=== PATIENT | male | born 1975 | race African-American/Black ===

== ENCOUNTER 2022-05-20 14:48 | Emergency (ER) | payer OTHER ==
[2022-05-20] MEDS ORDERED: CLONIDINE HCL 0.2 MG TABLET PO STA (14:52)
[2022-05-20 15:20] LABS: BASOPHILS % (AUTO) 1.1 % (0.0-5.0); EOSINOPHILS % (AUTO) 3.2 % (0.0-8.0); HEMATOCRIT 41.2 % (42-54); LYMPHOCYTES % (AUTO) 49.1 % (21.0-51.0); MEAN CORPUSCULAR HGB CONC 32.8 g/dL (32.0-36.0); MEAN CORPUSCULAR VOLUME 91.6 fL (79-99); MONOCYTES % (AUTO) 7.3 % (3.0-13.0); PLATELET COUNT (AUTO) 276 K/uL (130-400); RED CELL DISTRIBUTION WIDTH 14.3 % (11.0-15.5); WHITE BLOOD COUNT (AUTO) 3.7 K/uL (4.8-10.8)
[2022-05-20 15:30] LABS: POTASSIUM 3.7 mmol/L (3.5-5.1)
[2022-05-20 15:40] LABS: ALBUMIN 3.6 g/dL (3.5-5.0); TOTAL PROTEIN, SERUM 7.1 g/dL (6.0-8.3)
[2022-05-20 15:47] VITALS: BP 167/102
[2022-05-20 16:46] LABS: AMPHET/METH SCREEN,URINE NEGATIVE (NEGATIVE); BENZODIAZEPINES SCREEN,URINE NEGATIVE (NEGATIVE); CANNABINOID SCREEN,URINE POSITIVE (NEGATIVE); COCAINE SCREEN,URINE NEGATIVE (NEGATIVE); PHENCYCLIDINE SCREEN,URINE NEGATIVE (NEGATIVE)
[2022-05-20] MEDS ORDERED: KETOROLAC 30MG VIAL (30MG/ML) IVP STA (16:49)
[2022-05-20] MEDS ORDERED: LISI20TA24 PO (17:10)
[2022-05-20] MEDS ORDERED: KETO10TA2 PO (17:10)
[2022-05-23 08:15] LABS: OPIATES SCREEN URINE Negative ng/mL (Cutoff=300)
== END 2022-05-20 17:52 | disposition home or self-care (01) ==
LOC: EDH 14:48
DX: I10 Essential (primary) hypertension (principal); G89.29 Other chronic pain; M54.9 Dorsalgia, unspecified; J45.909 Unspecified asthma, uncomplicated
CPT/HCPCS: 99285; 96374; 70450; 82550; 84484; 80053; 80305; 85025; 36415; 93005; J1885